=== PATIENT | male | born 2000 | race Caucasian/White ===

== ENCOUNTER 2019-05-05 20:54 | Emergency (ER) | payer BC ==
[~2019-05-05] VITALS: Ht 177.8 cm; Wt 59.0 kg
[2019-05-05 20:55] VITALS: BP 125/60
--- NOTE | 2019-05-05 22:03 | PHYS DOC ---
Past Medical History Past Medical History: No Pertinent History Past Surgical History: No Surgical History Alcohol Use: Rarely Drug Use: None Adult General Chief Complaint Chief Complaint: NAUSEA/VOMITING/DIARRHA HPI HPI Patient is a 19 year old male who presents to the ED today complaining of nausea vomiting and diarrhea that began today after drinking what he believes is gatorade a few minutes ago. Patient is also complaining of generalized abdominal pain. He is actively vomiting in the ED and has made several trips to the bathroom for diarrhea. Review of Systems Review of Systems Constitutional: Denies fever or chills [] Eyes: Denies change in visual acuity, redness, or eye pain [] HENT: Denies nasal congestion or sore throat [] Respiratory: Denies cough or shortness of breath [] Cardiovascular: No additional information not addressed in HPI [] GI: Reports abdominal pain, nausea vomiting and diarrhea, denies any hematemesis or melena : Denies dysuria or hematuria [] Musculoskeletal: Denies back pain or joint pain [] Integument: Denies rash or skin lesions [] Neurologic: Denies headache, focal weakness or sensory changes [] All other systems were reviewed and found to be within normal limits, except as documented in this note. Current Medications Current Medications Current Medications Medications (Trade) Dose Ordered Sig/Alejandra Start Time Stop Time Status Last Admin Dose Admin Ciprofloxacin/ Dextrose 200 ml @ 200 mls/hr 1X ONCE 05/06/19 00:00 05/06/19 00:59 05/05/19 23:56 200 MLS/HR Famotidine (Pepcid Vial) 20 mg 1X ONCE 05/05/19 22:30 05/05/19 22:31 DC 05/05/19 22:28 20 MG Info (CONTRAST GIVEN -- Rx MONITORING) 1 each PRN DAILY PRN 05/05/19 22:45 05/07/19 22:44 Iohexol (Omnipaque 300 Mg/ml) 100 ml STK-MED ONCE 05/05/19 22:44 05/05/19 22:44 DC Metronidazole 100 ml @ 100 mls/hr 1X ONCE 05/06/19 00:00 05/06/19 00:59 05/05/19 23:56 100 MLS/HR Morphine Sulfate (Morphine Sulfate) 4 mg 1X ONCE 05/06/19 00:00 05/06/19 00:01 DC 05/05/19 23:57 4 MG Ondansetron HCl (Zofran) 4 mg 1X ONCE 05/05/19 22:30 05/05/19 22:31 DC 05/05/19 22:28 4 MG Sodium Chloride 1,000 ml @ 1,000 mls/hr 1X ONCE 05/05/19 22:30 05/05/19 23:29 DC 05/05/19 22:23 1,000 MLS/HR Allergies Allergies Allergies Coded Allergies Type Severity Reaction Last Updated Verified No Known Drug Allergies 05/05/19 No Physical Exam Physical Exam Constitutional: Well developed, well nourished, no acute distress, non-toxic appearance. [] HENT: Normocephalic, atraumatic, bilateral external ears normal, oropharynx moist, no oral exudates, nose normal. [] Eyes: PERRLA, EOMI, conjunctiva normal, no discharge. [] Neck: Normal range of motion, no tenderness, supple, no stridor. [] Cardiovascular:Heart rate regular rhythm, no murmur [] Lungs & Thorax: Bilateral breath sounds clear to auscultation [] Abdomen: Bowel sounds normal, soft, no tenderness, no masses, no pulsatile masses. [] Skin: Warm, dry, no erythema, no rash. [] Back: No tenderness, no CVA tenderness. [] Extremities: No tenderness, no cyanosis, no clubbing, ROM intact, no edema. [] Neurologic: Alert and oriented X 3, normal motor function, normal sensory f unction, no focal deficits noted. [] Psychologic: Affect normal, judgement normal, mood normal. [] Current Patient Data Vital Signs Vital Signs Date Time Temp Pulse Resp B/P (MAP) Pulse Ox O2 Delivery O2 Flow Rate FiO2 05/05/19 23:57 Room Air 05/05/19 20:55 99.2 96 12 125/60 (81) 98 99.2 Lab Values Laboratory Tests Test 05/05/19 22:04 05/05/19 22:11 Urine Collection Type Unknown Urine Color Yellow Urine Clarity Clear Urine pH 5.0 Urine Specific [place] >=1.030 Urine Protein 30 mg/dL (NEG-TRACE) Urine Glucose (UA) Negative mg/dL (NEG) Urine Ketones (Stick) Negative mg/dL (NEG) Urine Blood Small (NEG) Urine Nitrite Negative (NEG) Urine Bilirubin Negative (NEG) Urine Urobilinogen Dipstick 0.2 mg/dL (0.2 mg/dL) Urine Leukocyte Esterase Negative (NEG) Urine RBC Occ /HPF (0-2) Urine WBC Rare /HPF (0-4) Urine Squamous Epithelial Cells Occ /LPF Urine Bacteria 0 /HPF (0-FEW) Urine Hyaline Casts Few /HPF Urine Mucus Slight /LPF Urine Opiates Screen Neg (NEG) Urine Methadone Screen Neg (NEG) Urine Barbiturates Neg (NEG) Urine Phencyclidine Screen Neg (NEG) Urine Amphetamine/Methamphetamine Neg (NEG) Urine Benzodiazepines Screen Neg (NEG) Urine Cocaine Screen Neg (NEG) Urine Cannabinoids Screen Pos (NEG) Urine Ethyl Alcohol Neg (NEG) White Blood Count 18.0 x10^3/uL (4.0-11.0) H Red Blood Count 4.87 x10^6/uL (4.30-5.70) Hemoglobin 14.7 g/dL (13.0-17.5) Hematocrit 43.7 % (39.0-53.0) Mean Corpuscular Volume 90 fL (79-100) Mean Corpuscular Hemoglobin 30 pg (25-35) Mean Corpuscular Hemoglobin Concent 34 g/dL (31-37) Red Cell Distribution Width 14.2 % (11.5-14.5) Platelet Count 388 x10^3/uL (140-400) Neutrophils (%) (Auto) 83 % (31-73) H Lymphocytes (%) (Auto) 10 % (24-48) L Monocytes (%) (Auto) 7 % (0-9) Eosinophils (%) (Auto) 0 % (0-3) Basophils (%) (Auto) 0 % (0-3) Neutrophils # (Auto) 14.9 x10^3/uL (1.8-7.7) H Lymphocytes # (Auto) 1.7 x10^3/uL (1.0-4.8) Monocytes # (Auto) 1.3 x10^3/uL (0.0-1.1) H Eosinophils # (Auto) 0.0 x10^3/uL (0.0-0.7) Basophils # (Auto) 0.1 x10^3/uL (0.0-0.2) Segmented Neutrophils % 78 % (35-66) H Band Neutrophils % 9 % (0-9) Lymphocytes % 7 % (24-48) L Monocytes % 5 % (0-10) Basophils % 1 % (0-3) Platelet Estimate Adequate (ADEQUATE) Sodium Level 140 mmol/L (136-145) Potassium Level 5.0 mmol/L (3.5-5.1) Chloride Level 105 mmol/L (98-107) Carbon Dioxide Level 22 mmol/L (21-32) Anion Gap 13 (6-14) Blood Urea Nitrogen 21 mg/dL (8-26) Creatinine 1.3 mg/dL (0.7-1.3) Estimated GFR (Cockcroft-Gault) 70.4 BUN/Creatinine Ratio 16 (6-20) Glucose Level 123 mg/dL (70-99) H Calcium Level 9.3 mg/dL (8.5-10.1) Total Bilirubin 0.4 mg/dL (0.2-1.0) Aspartate Amino Transferase (AST) 27 U/L (15-37) Alanine Aminotransferase (ALT) 18 U/L (16-63) Alkaline Phosphatase 98 U/L (46-116) Total Protein 8.2 g/dL (6.4-8.2) Albumin 5.1 g/dL (3.4-5.0) H Albumin/Globulin Ratio 1.6 (1.0-1.7) Lipase 251 U/L (73-393) Ethyl Alcohol Level < 10 mg/dL (0-10) Laboratory Tests 05/05/19 22:11 Laboratory Tests 05/05/19 22:11 EKG EKG [] Radiology/Procedures Radiology/Procedures []PROCEDURE: CT ABD PELV W/ IV CONTRST ONLY CT abdomen and pelvis with contrast PQRS statement: CT scans at this facility use dose reduction including either automated exposure control, iterative reconstructions, and /or weight based radiation dosing via mA and kV modification when appropriate to reduce radiation dose to as low as reasonably achievable. HISTORY: Abdominal pain, nausea and vomiting. Contrast: 75 mL Omnipaque 300 intravenous contrast. 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 Mild disc height loss and disc bulges L4-5 and L5-S1. Lung bases are unremarkable. Kidneys, adrenal glands, pancreas, spleen, liver and gallbladder are unremarkable. The left abdominal small bowel demonstrates fold thickening. No bowel obstruction. The appendix is not confidently identified likely obscured by surrounding fluid-filled large and small bowel loops no obvious pericecal inflammation evident. A portion of the appendix is filled with air and likely visualized medial the cecum overlapping the iliac vessels axial images 57 and 58. No abdominal fluid or adenopathy. Pelvis findings: No pelvic fluid or adenopathy. Bladder, prostate, rectum and bones are unremarkable. IMPRESSION: 1. Fold thickening of the proximal small bowel at the left abdomen may represent enteritis. No bowel obstruction. 2. Limited visualization of the appendix. The visualized segment is normal without dilation or inflammation evident. Electronically signed by: Jazzy Fletcher MD (05/05/2019 11:23 PM) [facility] DICTATED and SIGNED BY: JAZZY FLETCHER MD DATE: 05/05/19 3722 Course & Med Decision Making Course & Med Decision Making Pertinent Labs and Imaging studies reviewed. (See chart for details) This is a 19-year-old male patient presenting to the ED today complaining of generalized abdominal pain with nausea vomiting and diarrhea that began a couple minutes prior to coming to the ED after drinking Gatorade. Patient arrives in the ED vomiting and going to the bathroom several times for diarrhea. Patient is afebrile. CBC with a WBC of 18.0, CMP with no acute findings. CT of the abdomen and pelvic was noted for possible enteritis. He was given 1 L of fluid, Zofran, famotidine, started on Flagyl and Cipro in the ED. Feeling slightly better. Discharged to home with Flagyl, Cipro and Zofran as well as pain medicine. Instructed to push fluids. Follow up with GI doctor or PCP in the course of this week. Dragon Disclaimer Dragon Disclaimer This electronic medical record was generated, in whole or in part, using a voice recognition dictation system. Departure Departure Impression: Primary Impression: Enteritis Disposition: HOME, SELF-CARE Condition: STABLE Referrals: CHRISTINA JAIME MD (PCP) follow up in the course of this week Patient Instructions: Nausea and Vomiting Additional Instructions: You were evaluated in the emergency room and noted to have enteritis. Please push fluids. Take the prescribed medications as ordered. Follow-up with the your doctor in the course of this week. Scripts Hydrocodone/Apap 5-325 (NORCO 5-325 TABLET) 1 Each Tablet 1 TAB PO Q6HRS PRN for PAIN, #20 TAB Prov: TRI GOMEZ APRN 05/06/19 Dicyclomine Hcl (DICYCLOMINE HCL) 20 Mg Tablet 1 TAB PO TID, #21 TAB 1 Refill Prov: TRI GOMEZ APRN 05/06/19 Metronidazole (FLAGYL) 500 Mg Tablet 500 MG PO TID, #21 TAB Prov: TRI GOMEZ APRN 05/06/19 Ciprofloxacin Hcl (CIPRO) 500 Mg Tablet 1 TAB PO BID for 7 Days, #14 TAB 0 Refills Prov: TRI GOMEZ APRN 05/06/19 Ondansetron (ONDANSETRON ODT) 4 Mg Tab.rapdis 1 TAB PO PRN Q6-8HRS, #16 TAB Prov: TRI GOMEZ APRN 05/06/19 TRI GOMEZ APRN May 05, 2019 22:03
[2019-05-05 22:19] LABS: BASO # 0.1 x10^3/uL (0.0-0.2); BASO % 0 % (0-3); EOS % 0 % (0-3); HEMATOCRIT 43.7 % (39.0-53.0); HEMOGLOBIN 14.7 g/dL (13.0-17.5); LYMPH # 1.7 x10^3/uL (1.0-4.8); LYMPH % 10 % (24-48); MEAN CORPUSCULAR HEMOGLOBIN 30 pg (25-35); MEAN CORPUSCULAR HGB CONC 34 g/dL (31-37); MEAN CORPUSCULAR VOLUME 90 fL (79-100); MONO # 1.3 x10^3/uL (0.0-1.1); MONO % 7 % (0-9); NEUT # 14.9 x10^3/uL (1.8-7.7); NEUT % 83 % (31-73); PLATELET COUNT 388 x10^3/uL (140-400); RED BLOOD COUNT 4.87 x10^6/uL (4.30-5.70); RED CELL DISTRIBUTION WIDTH 14.2 % (11.5-14.5)
[2019-05-05 22:21] LABS: BILIRUBIN,URINE NEGATIVE (NEG); CLARITY,URINE CLEAR; COLOR,URINE YELLOW; NITRITE,URINE NEGATIVE (NEG); PROTEIN,URINE 30 mg/dL (NEG-TRACE); UROBILINOGEN,URINE 0.2 mg/dL (0.2 mg/dL)
[2019-05-05 22:25] LABS: SQUAMOUS EPITHELIAL CELL,UR OCC /LPF
[2019-05-05 22:26] LABS: BACTERIA,URINE 0 /HPF (0-FEW); HYALINE CASTS, URINE FEW /HPF; RBC,URINE OCC /HPF (0-2); WBC,URINE RARE /HPF (0-4)
[2019-05-05 22:27] LABS: BARBITURATES NEG (NEG); BENZODIAZEPINES NEG (NEG); CANNABINOIDS POS (NEG); COCAINE NEG (NEG); METHADONE NEG (NEG); OPIATES NEG (NEG); PHENCYCLIDINE NEG (NEG)
[2019-05-05 22:28] LABS: AMPHETAMINE/METHAMPHETAMINE NEG (NEG)
[2019-05-05 22:28] LABS: CALCIUM 9.3 mg/dL (8.5-10.1); CREATININE 1.3 mg/dL (0.7-1.3); GFR 70.4
[2019-05-05] MEDS ORDERED: ONDANSETRON PF 4 MG/2 ML VIAL. IV ONE (22:30)
[2019-05-05] MEDS ORDERED: FAMOTIDINE 20 MG/2 ML VIAL IVP ONE (22:30)
[2019-05-05] MEDS ORDERED: IV NORMAL SALINE 1000ML BAG 1,000 ML IV ONE (22:30)
[2019-05-05 22:33] LABS: ALBUMIN 5.1 g/dL (3.4-5.0); ALBUMIN/GLOBULIN RATIO 1.6 (1.0-1.7); TOTAL BILIRUBIN 0.4 mg/dL (0.2-1.0); TOTAL PROTEIN 8.2 g/dL (6.4-8.2)
[2019-05-05 22:42] LABS: % BANDS 9 % (0-9); % BASOS 1 % (0-3); % LYMPHS 7 % (24-48); % MONOS 5 % (0-10); % SEGS 78 % (35-66)
[2019-05-05 22:43] LABS: PLT ESTIMATE ADEQUATE (ADEQUATE)
[2019-05-05] MEDS ORDERED: IOHEXOL 300 MG/ML 100ML VIAL. ONE (22:44)
[2019-05-05] MEDS ORDERED: CONTRAST GIVEN. MC PRN (22:45)
[2019-05-05] MEDS ORDERED: IOHEXOL 300 MG/ML 100ML VIAL. IV ONE (23:00)
--- NOTE | 2019-05-05 23:26 | RAD ---
CT abdomen and pelvis with contrast PQRS statement: CT scans at this facility use dose reduction including either automated exposure control, iterative reconstructions, and /or weight based radiation dosing via mA and kV modification when appropriate to reduce radiation dose to as low as reasonably achievable. HISTORY: Abdominal pain, nausea and vomiting. Contrast: 75 mL Omnipaque 300 intravenous contrast. 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 Mild disc height loss and disc bulges L4-5 and L5-S1. Lung bases are unremarkable. Kidneys, adrenal glands, pancreas, spleen, liver and gallbladder are unremarkable. The left abdominal small bowel demonstrates fold thickening. No bowel obstruction. The appendix is not confidently identified likely obscured by surrounding fluid-filled large and small bowel loops no obvious pericecal inflammation evident. A portion of the appendix is filled with air and likely visualized medial the cecum overlapping the iliac vessels axial images 57 and 58. No abdominal fluid or adenopathy. Pelvis findings: No pelvic fluid or adenopathy. Bladder, prostate, rectum and bones are unremarkable. IMPRESSION: 1. Fold thickening of the proximal small bowel at the left abdomen may represent enteritis. No bowel obstruction. 2. Limited visualization of the appendix. The visualized segment is normal without dilation or inflammation evident. Electronically signed by: Cole Fletcher MD (05/05/2019 11:23 PM) [id number]
[2019-05-06] MEDS ORDERED: CIPROFLOXACIN 400MG PREMIX 200 ML IV ONE
[2019-05-06] MEDS ORDERED: MORPHINE SULFATE 4 MG/ML VIAL. IV ONE
[2019-05-06] MEDS ORDERED: DICY20TA3 PO (00:40)
[2019-05-06] MEDS ORDERED: HYDR-3164 PO (00:40)
[2019-05-06] MEDS ORDERED: METR500T PO (00:40)
[2019-05-06] MEDS ORDERED: ONDA4TAB12 PO (00:40)
[2019-05-06] MEDS ORDERED: CIPR500T94 PO (00:40)
== END 2019-05-06 01:05 | disposition home or self-care (01) ==
LOC: ER 20:54
DX: K52.9 Noninfective gastroenteritis and colitis, unspecified (principal); R11.2 Nausea with vomiting, unspecified; R19.7 Diarrhea, unspecified; R10.84 Generalized abdominal pain; Z79.899 Other long term (current) drug therapy
CPT/HCPCS: 36415; 74177; 80053; 80307; 81001; 83690; 85007; 85025; 96361; 96365; 96368; 96375; 99285; G0480; J0744; J2270; J2405; J3490; J7030; Q9967